=== PATIENT | male | born 1995 | race Caucasian/White ===

== ENCOUNTER 2017-03-16 11:25 | Emergency (ER) | payer BC ==
[~2017-03-16] VITALS: Ht 177.8 cm; Wt 127.0 kg
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
[2017-03-16 11:47] VITALS: BP 139/74; PULSE 94; RESP 16; TEMP 97.7; O2SAT 98
--- NOTE | 2017-03-16 12:13 | PD ---
HPI . left eye orbital floor fracture Chief Complaint: Eye Problems/Injury Time Seen by Provider: 12:13 Travel History International Travel<30 days: No Contact w/Intl Traveler<30days: No Traveled to known affect area: No History of Present Illness HPI 21-year-old male who went to the emergency department on March 15 at another facility and was found to have orbital floor fracture here telling me that the max/facial surgeon he was referred to will not accept his insurance. He says they told him to come to the emergency department. Reports show a left-sided fracture involve the left floor of the orbit, the medial lateral wall of the base of the left maxillary sinus and the left pterygoid plate. Findings were consistent with a left-sided LeFort type I fracture and blowout fracture of the left orbital floor. There was also extensive hemorrhage and mucosal thickening of the left paranasal sinus. Patient is here complaining of 8/10 pain in the left eye. He tells me that unfortunately there was some issues with his insurance and there is no provider within 100 mile radius that will accept his insurance. He recently moved here from [place]. PFSH Social History Tobacco Use: No Allergies-Medications (Allergen,Severity, Reaction): Coded Allergies: No Known Allergies (Unverified , 03/16/17) Reported Meds & Prescriptions Reported Meds & Active Scripts Active Reported [place] (Hydrocodone-Acetaminophen) 5-325 mg Tab 1 Tab PO Q6H PRN Review of Systems General / Constitutional: No: Fever Eyes: Positive: Redness, Pain, Other (left orbital floor fracture ), No: Visual changes HENT: No: Headaches Cardiovascular: No: Chest Pain or Discomfort Respiratory: No: Shortness of Breath Gastrointestinal: No: Abdominal Pain Genitourinary: No: Dysuria Musculoskeletal: No: Pain Skin: No Rash Neurologic: No: Weakness Psychiatric: No: Depression Endocrine: No: Polydipsia Hematologic/Lymphatic: No: Easy Bruising Physical Exam Narrative GENERAL: AAO x 3, no acute distress, Well-nourished, well-developed patient. SKIN: Warm and dry. No visible rashes or bruising. HEAD: Normocephalic and atraumatic. EYES: No scleral icterus. No injection or drainage. Subconjunctival hemorrhage of the left eye. There is significant edema and ecchymosis of the left orbit. EOMs are intact. The left upper eyelid is slow to react. ENT: No nasal drainage noted. Mucous membranes pink. Airway patent. NECK: Supple, trachea midline. No JVD. CARDIOVASCULAR: Regular rate and rhythm without murmurs, gallops, or rubs. RESPIRATORY: Breath sounds equal bilaterally. No accessory muscle use. No rhonchi or rales. GASTROINTESTINAL: Abdomen soft, non-tender, nondistended. EXTREMITIES: No cyanosis or edema. BACK: Nontender without obvious deformity. No CVA tenderness. PSYCH: AAO x 3, normal affect. Data Data Last Documented VS Vital Signs Date Time Temp Pulse Resp B/P Pulse Ox O2 Delivery O2 Flow Rate FiO2 03/16/17 11:47 97.7 94 16 139/74 98 Orders Oxycodone-Acetamin 5-325 Mg (Percocet (03/16/17 12:45) MDM Medical Decision Making Medical Screen Exam Complete: Yes Emergency Medical Condition: Yes Medical Record Reviewed: Yes Differential Diagnosis orbital floor fracture Narrative Course 21-year-old male who went to the emergency department on March 15 at another facility and was found to have orbital floor fracture here telling me that the max/facial surgeon he was referred to will not accept his insurance. He says they told him to come to the emergency department. Reports show a left-sided fracture involve the left floor of the orbit, the medial lateral wall of the base of the left maxillary sinus and the left pterygoid plate. Findings were consistent with a left-sided LeFort type I fracture and blowout fracture of the left orbital floor. There was also extensive hemorrhage and mucosal thickening of the left paranasal sinus. Patient is here complaining of 8/10 pain in the left eye. He tells me that unfortunately there was some issues with his insurance and there is no provider within 100 mile radius that will accept his insurance. He recently moved here from [place]. Patient seen and examined. He will need a medical bed for further evaluation and treatment. He will need to see facial surgery here while in the emergency department. I have requested transfer to a medical bed. Percocet ordered for pain. The next provider to determine his disposition. Condition: Stable Lalita Humphrey Mar 16, 2017 12:13
[2017-03-16] MEDS ORDERED: NORC5TAB PO (12:24)
[2017-03-16] MEDS ORDERED: oxyCODONE/ACETAMINOPHEN 5 MG/325 MG TAB PO ONE (12:45)
[2017-03-16 15:38] VITALS: BP 138/68; PULSE 67; RESP 20; O2SAT 98
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
[2017-03-16] MEDS ORDERED: MORPHINE SULFATE 8 MG/ML INJ IM ONE (16:30)
[2017-03-16] MEDS ORDERED: PERC5TAB12 PO (18:44)
[2017-03-16] MEDS ORDERED: CLIN1CAP6 PO (18:44)
[2017-03-16 18:53] VITALS: BP 139/87
== END 2017-03-16 19:02 | disposition home or self-care (01) ==
LOC: EDBD → NEPC 11:25
DX: S02.411A LeFort I fracture, initial encounter for closed fracture (principal); H11.32 Conjunctival hemorrhage, left eye; X58.XXXA Exposure to other specified factors, initial encounter; Y09 Assault by unspecified means
CPT/HCPCS: 96372; 99283; J2270